=== PATIENT | male | born 1990 | race Two or more races ===

== ENCOUNTER 2024-04-12 15:08 | Outpatient (CLI) | payer OTHER | END 2024-04-12 15:23 | disposition home or self-care (01) | LOC: RAD 15:08 | PROVIDERS: ATTEND Physical Medicine & Rehabilitation | DX: M75.81 Other shoulder lesions, right shoulder (principal) ==

== ENCOUNTER 2024-04-13 10:15 | Outpatient (CLI) | payer OTHER | END 2024-04-13 10:25 | disposition home or self-care (01) | LOC: SONOGRAMA 10:15 | PROVIDERS: ATTEND Physical Medicine & Rehabilitation | DX: M75.81 Other shoulder lesions, right shoulder (principal) ==

== ENCOUNTER 2024-08-25 13:49 | Outpatient (CLI) | payer OTHER | END 2024-08-25 13:51 | disposition home or self-care (01) | LOC: MRI 13:49 | PROVIDERS: ATTEND Physical Medicine & Rehabilitation | DX: M75.81 Other shoulder lesions, right shoulder (principal) | CPT/HCPCS: 73218 ==